=== PATIENT | male | born 1975 | race Caucasian/White ===

== ENCOUNTER 2019-11-16 06:51 | Day surgery (SDC) | payer BC, OTHER ==
[~2019-11-16 06:51] MED LIST: Lactated Ringers 1,000 ML IV SCH; Sodium Chloride 0.9% 10 ML Syringe FLUSH PRN
[2019-11-16] MEDS ORDERED: Lidocaine 2% 5 ML SDV INJECT ONE (06:52)
[2019-11-16] MEDS ORDERED: Propofol 200 MG/20 ML SDV IV ONE (06:52)
[2019-11-16] MEDS ORDERED: Midazolam 1 MG/ML 2 ML SDV IV ONE (06:52)
--- NOTE | 2019-11-16 09:20 | PCM.HPR ---
H & P Addendum review - H & P Addendum Review Date of Original H & P: 10/28/19 Date Reviewed: 11/16/19 Time Reviewed: 08:05 Patient was Examined: No Changes
--- NOTE | 2019-11-16 09:22 | PCM.OPNOTE ---
- General Post-Op/Procedure Note Date of Surgery/Procedure: 11/16/19 Operative Procedure(s): EGD with Bx. Colonoscopy Findings: Mild Esephagitis Normal Cscope Pre Op Diagnosis: GERD; Rectal bleeding Post-Op Diagnosis: Same Anesthesia Technique: HARRIET Primary Surgeon: Javed Perdomo Anesthesia Provider: Slime Israel Complications: None Condition: Good
--- NOTE | 2019-11-17 13:46 | OR ---
DATE OF OPERATION: 11/16/2019 SURGEON: Javed Perdomo MD PREOPERATIVE DIAGNOSES: 1. Gastroesophageal reflux disease. 2. Hematochezia. POSTOPERATIVE DIAGNOSES: 1. Gastroesophageal reflux disease. 2. Normal colonoscopy. PROCEDURES: 1. Esophagogastroduodenoscopy with biopsy. 2. Colonoscopy. ANESTHESIA: IV sedation. DESCRIPTION OF PROCEDURE: The patient was brought to the procedure room, where he was placed on his left side and IV sedation administered. Oral bite block was placed and the upper endoscope advanced into the esophagus under direct vision without difficulty. Vocal cords were viewed and were normal. The scope was advanced to the third portion of the duodenum. The duodenum and pylorus were normal. Antrum and body of the stomach were normal. Retroflexion reveals a normal-appearing fundus. There was no hiatal hernia. 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 I did biopsy this area. I did not see any inflammation, strictures, erosions, or other abnormalities. Air was removed and the scope withdrawn through the remaining esophagus, which appeared normal. The patient tolerated this portion of the procedure well. Next, colonoscopy was performed, after digital rectal exam was done, which was normal. The colonoscope was inserted and advanced to the level of the cecum without difficulty. Cecal position was confirmed by identifying the appendiceal lumen and ileocecal valve. Prep was good and surfaces were well visualized. Upon withdrawing the scope, the ascending, transverse, and descending colon were normal in appearance. The sigmoid colon and rectum were normal. Retroflexion does reveal some mildly enlarged hemorrhoidal columns, but no inflammation or evidence of recent bleeding. Air was removed and the scope withdrawn. The patient tolerated the procedure well and returned to Recovery in stable condition. RECOMMENDATIONS: I will contact the patient with the results of his upper endoscopy when it returns. He should remain on his current medication. If Cast's is present, he should undergo a repeat upper endoscopy again in 3 years. If he has recurrent hematochezia, he should see me in the clinic at the time of the bleeding, where anoscopic exam could be performed and possible hemorrhoid banding, if a source is identified. /[id number] DAYDAY/NADIR
== END 2019-11-16 09:48 | disposition home or self-care (01) ==
LOC: FB.SDS 06:51
PROVIDERS: ATTEND Surgery
DX: K64.9 Unspecified hemorrhoids (principal); K22.70 Barrett's esophagus without dysplasia; K92.1 Melena; K21.9 Gastro-esophageal reflux disease without esophagitis; I10 Essential (primary) hypertension; Z80.0 Family history of malignant neoplasm of digestive organs; Z90.49 Acquired absence of other specified parts of digestive tract; Z79.899 Other long term (current) drug therapy
CPT/HCPCS: 43239; 45378; 88305; 88313; J2001; J2250; J2704; J7120

== ENCOUNTER 2020-06-13 07:16 | Day surgery (SDC) | payer BC ==
[2020-06-13] MEDS ORDERED: fentaNYL 100 MCG/2 ML SDV IV ONE (07:17)
[2020-06-13] MEDS ORDERED: Lidocaine 1% PF 2 ML SDV IV ONE (07:17)
[2020-06-13] MEDS ORDERED: Midazolam 1 MG/ML 2 ML SDV IV ONE (07:17)
[2020-06-13] MEDS ORDERED: Lactated Ringers 1,000 ML IV ONE (07:17)
[2020-06-13] MEDS ORDERED: Propofol 1,000 MG/100 ML SDV IV ONE (07:17)
[2020-06-13] MEDS ORDERED: Lactated Ringers 1,000 ML IV SCH (08:00)
[2020-06-13] MEDS ORDERED: Sodium Chloride 0.9% 10 ML Syringe FLUSH PRN (08:00)
--- NOTE | 2020-06-13 08:57 | PCM.HPR ---
H & P Addendum review - H & P Addendum Review Date of Original H & P: 06/09/20 Date Reviewed: 06/13/20 Time Reviewed: 08:30 Patient was Examined: No Changes (Fells better after transfusion last week)
[2020-06-13] MEDS ORDERED: Lidocaine 1% with EPINEPHrine 1:100,000 20 ML MDV INJECT ONE (09:14)
[2020-06-13] MEDS ORDERED: Bupivacaine 0.5% 30 ML SDV INJECT ONE (09:14)
--- NOTE | 2020-06-13 10:30 | PCM.OPNOTE ---
- General Post-Op/Procedure Note Date of Surgery/Procedure: 06/13/20 Operative Procedure(s): Colonoscopy. Hemorrhoidectomy. Skin tag removal Pre Op Diagnosis: Hematochezia. Skin tag Post-Op Diagnosis: Same Anesthesia Technique: Local, MAC Primary Surgeon: Javed Perdomo EBL in mLs: 20 Complications: None Condition: Good
[2020-06-13] MEDS ORDERED: Acetaminophen/HYDROcodone 325-5 MG Tab PO PRN (10:39)
[2020-06-13] MEDS ORDERED: Morphine 2 MG/ML SYRINGE IVPUSH PRN (10:39)
--- NOTE | 2020-06-14 08:16 | OR ---
DATE OF OPERATION: 06/13/2020 SURGEON: Javed Perdomo MD PREOPERATIVE DIAGNOSES: 1. Hematochezia with anemia. 2. Skin tag, left buttock. POSTOPERATIVE DIAGNOSES: 1. Enlarged internal hemorrhoids. 2. Skin tag, left buttock. PROCEDURES: 1. Colonoscopy. 2. Hemorrhoidectomy. 3. Excision of skin tag, left buttock. ANESTHESIA: MAC with local. DESCRIPTION OF PROCEDURE: The patient was brought to the procedure room, where he was placed on his left side and IV sedation administered. Digital rectal exam was performed, which was normal. There was no blood on the glove. Colonoscope was inserted and advanced to the level of the cecum without difficulty. Cecal position was confirmed by identifying the appendiceal lumen and ileocecal valve. Prep was very good and surfaces were well visualized. Upon withdrawing the scope, the ascending, transverse, and descending colon were normal in appearance. The sigmoid colon and rectum were normal. Retroflexion reveals enlarged internal hemorrhoids, but no active bleeding. Air was removed and the scope withdrawn. The patient tolerated the procedure well and returned to recovery in stable condition. The patient was then placed on the operating room table in the prone jackknife position. Buttocks were prepped with benzoin and retracted with tape. Betadine prep was performed. A 50:50 mixture of 1% Lidocaine with Epinephrine and 0.5% Marcaine was used for local anesthesia. Perianal region and sphincter were injected with local anesthetic. Anoscopic exam reveals enlarged internal hemorrhoids, mostly in the left lateral and left posterior position, which was combined as 1 large hemorrhoid. He also has a medium-size one in the right lateral position. The left one was done first by suture ligating the base with 3-0 Vicryl and sharply excising the hemorrhoid complex. This was closed with running locking 3-0 Vicryl. A few interrupted sutures were used to reinforce the line where any oozing was visible. After hemostasis was assured, the right one was done in a similar fashion in the right lateral position. This suture line was also reinforced and hemostasis was assured. Final inspection was then given and there is some mildly enlarged internal hemorrhoidal tissue in the anterior midline. This was oversewn with 3-0 Vicryl since it was close to the other suture line and did not want to excise it. Lastly, the skin tag was excised by using electrocautery at its base, which was approximately 4 mm in diameter. Hemostasis was assured. Sterile bulky pressure dressing was applied. The patient tolerated the procedure well. Estimated blood loss 20 mL. He returned to postanesthesia in stable condition. /[id number] DAYDAY/NADIR
== END 2020-06-13 11:39 | disposition home or self-care (01) ==
LOC: FB.SDS 07:16
PROVIDERS: ATTEND Surgery
DX: K64.8 Other hemorrhoids (principal); K64.4 Residual hemorrhoidal skin tags; D17.1 Benign lipomatous neoplasm of skin and subcutaneous tissue of trunk; D64.9 Anemia, unspecified; K92.1 Melena; I10 Essential (primary) hypertension
CPT/HCPCS: 00902-QZ; 88304; 88305; J2001; J2250; J2704; J3010; J3490; J7120